=== PATIENT | female | born 1980 | race Two or more races ===

== ENCOUNTER 2019-04-16 12:45 | Observation (INO) | payer OTHER ==
[2019-04-16] VITALS (16 sets, daily range): BP systolic 92–138; BP diastolic 50–80
[2019-04-16] MEDS ORDERED: SODIUM CHLORIDE 0.9% 1000ML 1,000 ML IV ONE ×2 (13:06→14:20)
[2019-04-16] MEDS ORDERED: MORPHINE SULFATE 4 MG/1ML SYG ONE ×2 (13:06→13:56)
[2019-04-16] MEDS ORDERED: ETOMIDATE 2 MG/ML 10 ML VIAL ONE ×2 (13:26→13:30)
[2019-04-16] MEDS ORDERED: ONDANSETRON HCL 4 MG/2 ML VIAL ONE ×4 (13:56→19:29)
[2019-04-16] MEDS ORDERED: HYDROMORPHONE 1 MG/1 ML AMP ONE ×2 (14:20→17:27)
[2019-04-16 15:42] LABS: BASOPHILS % (AUTO) 0.1 % (0.0-5.0); EOSINOPHILS % (AUTO) 0.2 % (0.0-8.0); LYMPHOCYTES % (AUTO) 13.8 % (21.0-51.0); MEAN CORPUSCULAR HEMOGLOBIN 30.2 pg (27.0-33.0); MEAN CORPUSCULAR HGB CONC 32.6 g/dL (32.0-36.0); MEAN CORPUSCULAR VOLUME 92.5 fL (79-99); MONOCYTES % (AUTO) 4.6 % (3.0-13.0); PLATELET COUNT (AUTO) 327 K/uL (130-400); RED BLOOD CELL COUNT(AUTO) 4.54 MIL/uL (4.00-5.50); RED CELL DISTRIBUTION WIDTH 12.2 % (11.0-15.5)
[2019-04-16 15:52] LABS: CREATININE 0.7 mg/dL (0.5-1.5); POTASSIUM 3.4 mmol/L (3.5-5.1)
[2019-04-16] MEDS ORDERED: CEFAZOLIN SODIUM 1 GM VIAL ONE (19:24)
[2019-04-16] MEDS ORDERED: MIDAZOLAM HCL 1 MG/ML 2ML VIAL ONE ×2 (19:28→19:29)
[2019-04-16] MEDS ORDERED: SUCCINYLCHOLINE 200MG/10ML SYR ONE (19:28)
[2019-04-16] MEDS ORDERED: PROPOFOL 10 MG/ML 20ML VIAL IV ONE (19:28)
[2019-04-16] MEDS ORDERED: LIDOCAINE PF 2% 5ML ABBOJECT ONE (19:28)
[2019-04-16] MEDS ORDERED: GLYCOPYRROLATE 1 MG/5 ML SYRINGE ONE (19:28)
[2019-04-16] MEDS ORDERED: DEXAMETHASONE SOD PHOSPHATE 10MG/ML 1ML VIAL ONE (19:28)
[2019-04-16] MEDS ORDERED: FENTANYL CITRATE PF 50 MCG/1 ML 2ML VIAL ONE (19:29)
[2019-04-16] MEDS ORDERED: NEOSTIGMINE 5MG/5ML SYR IV ONE (19:29)
[2019-04-16] MEDS ORDERED: ROCURONIUM 10MG/1ML SYR 10 MG/ML ML ONE (19:29)
[2019-04-16] MEDS ORDERED: MEPERIDINE-PF 25 MG/ML SYG ONE ×2 (20:43→21:00)
--- NOTE | 2019-04-16 21:30 | NUR ---
POST OP PATIENT ARRIVED TO ROOM 401 AAOX3. LEFT ARM IN SLING WITH SOFT CAST IN PLACE GOOD CAP REFILL AND WARM TO TOUCH. SPOUSE AT SIDE ALL QUESTIONS AND CONCERNS ADDRESSED.
[2019-04-16] MEDS ORDERED: ACETAMINOPHEN-CODEINE 300/30MG TAB ONE (22:22)
[2019-04-16] MEDS ORDERED: ACETAMINOPHEN-CODEINE 300/30MG TAB PO PRN (22:30)
--- NOTE | 2019-04-16 23:00 | NUR ---
DISCHARGE PATIENT DISCHARGED HOME PER DR PA ORDERS. IV TO RIGHT ARM REMOVED CATHETER INTACT. LEFT ARM IN SOFT CAST AND SLING PATIENT INSTRUCTED TO WEAR AT ALL TIMES. DISCHARGE INSTRUCTIONS AND PRESCRIPTIONS GIVEN TO PATIENT AND SPOUSE. PATIENT WAS THEN ASSISTED DOWN STAIRS VIA WHEELCHAIR TO HER PRIVATE CAR.
== END 2019-04-16 23:00 | disposition home or self-care (01) ==
LOC: EDH 12:45 → EDHIP 15:00 → 4AH 21:30
PROVIDERS: ADMIT Orthopaedic Surgery; ATTEND Orthopaedic Surgery
DX: M24.422 Recurrent dislocation, left elbow (principal); Z90.710 Acquired absence of both cervix and uterus; W18.39XA Other fall on same level, initial encounter; Y93.89 Activity, other specified; Y92.89 Other specified places as the place of occurrence of the external cause
CPT/HCPCS: 24605; 36415; 73080 ×2; 80048; 85025; 99284; A4606; G0378 ×7; J0330; J0690; J1100; J1170 ×2; J2001; J2175 ×2; J2250 ×2; J2270 ×2; J2405 ×4; J2704; J2710; J3010; J3490 ×3; J7030 ×2; Q4051

== ENCOUNTER 2020-08-29 18:13 | Emergency (ER) | payer BC, OTHER ==
[~2020-08-29] VITALS: Ht 154.9 cm; Wt 72.6 kg
[2020-08-29 18:14] VITALS: BP 162/96
[2020-08-29 18:33] LABS: BASOPHILS % (AUTO) 0.1 % (0.0-5.0); EOSINOPHILS % (AUTO) 0.7 % (0.0-8.0); HEMATOCRIT 45.6 % (36-48); LYMPHOCYTES % (AUTO) 26.9 % (21.0-51.0); MEAN CORPUSCULAR HEMOGLOBIN 30.8 pg (27.0-33.0); MEAN CORPUSCULAR HGB CONC 33.3 g/dL (32.0-36.0); MEAN CORPUSCULAR VOLUME 92.3 fL (79-99); MONOCYTES % (AUTO) 5.5 % (3.0-13.0); NEUTROPHILS % (AUTO) 66.4 % (40.0-77.0); PLATELET COUNT (AUTO) 314 K/uL (130-400); RED BLOOD CELL COUNT(AUTO) 4.94 MIL/uL (4.00-5.50); RED CELL DISTRIBUTION WIDTH 11.9 % (11.0-15.5); WHITE BLOOD COUNT (AUTO) 11.9 K/uL (4.8-10.8)
[2020-08-29 18:54] LABS: CREATININE 0.9 mg/dL (0.5-1.5); POTASSIUM 3.6 mmol/L (3.5-5.1)
[2020-08-29 18:58] LABS: ALBUMIN 3.8 g/dL (3.5-5.0); BILIRUBIN,TOTAL 0.1 mg/dL (0.2-1.0); TOTAL PROTEIN, SERUM 7.8 g/dL (6.0-8.3)
[2020-08-29 19:20] VITALS: BP 133/59
[2020-08-29] MEDS ORDERED: ONDA4TAB4 PO (21:08)
[2020-08-29] MEDS ORDERED: MECL-160 PO (21:08)
== END 2020-08-29 21:41 | disposition home or self-care (01) ==
LOC: EDH 18:13
DX: U07.1 COVID-19 (principal); R42 Dizziness and giddiness; R11.0 Nausea; M79.10 Myalgia, unspecified site; R53.83 Other fatigue
CPT/HCPCS: 36415; 71045; 80053; 84484; 85025; 85378; 87804; 93005

== ENCOUNTER 2023-05-28 07:57 | Emergency (ER) | payer BC ==
[~2023-05-28] VITALS: Ht 154.9 cm; Wt 74.8 kg
[~2023-05-28 07:57] MED LIST: MECL-160 PO; ONDA4TAB4 PO
[2023-05-28] MEDS ORDERED: NAPR-1180 PO (09:03)
[2023-05-28 09:07] VITALS: BP 129/82; PULSE 72; RESP 16; O2SAT 99
== END 2023-05-28 09:07 | disposition home or self-care (01) ==
LOC: EDH 07:57
DX: S93.491A Sprain of other ligament of right ankle, initial encounter (principal); Z79.899 Other long term (current) drug therapy; Z90.710 Acquired absence of both cervix and uterus; Z98.890 Other specified postprocedural states; X58.XXXA Exposure to other specified factors, initial encounter; Y93.89 Activity, other specified; Y92.89 Other specified places as the place of occurrence of the external cause; Y99.8 Other external cause status
CPT/HCPCS: 73610